=== PATIENT | female | born 1975 | race Caucasian/White ===

== ENCOUNTER 2024-07-24 15:27 | Outpatient (CLI) | payer BC, SELFPAY ==
--- NOTE | 2024-07-24 14:42 | DI.RAD_ITS ---
Exam(s) XR KNEE LT 4V AP,LAT,LIGIA,PAT EXAM: XR KNEE LT 4V AP,LAT,LIGIA,PAT CLINICAL HISTORY: left knee pain. TECHNIQUE: 2D digital imaging was performed of the left knee. Four images were obtained. Merchant, AP, lateral and PA tunnel views were obtained. COMPARISON: No exams were available for comparison FINDINGS: BONES: No acute fracture is present. No bony destructive lesion is seen. JOINTS: The knee is normally aligned. Small osteophytes are seen in the knee particularly the posteri or patella. No joint effusion is seen. No loose body. SOFT TISSUE: Normal. IMPRESSION: Minimal degenerative changes are seen. DATA REPOSITORY: RADIATION DOSE DELIVERED:
== END 2024-07-24 15:28 | disposition home or self-care (01) ==
LOC: DIORS 15:28
PROVIDERS: PCP Physician Assistant Medical; Referring Provider Physician Assistant Medical; Visit Provider Physician Assistant
DX: M25.562 Pain in left knee (principal)
CPT/HCPCS: 73564